=== PATIENT | male | born 1985 | race Caucasian/White ===

== ENCOUNTER 2023-07-27 20:12 | Emergency (ER) | payer MEDICAID, OTHER ==
[~2023-07-27] VITALS: Ht 177.8 cm; Wt 76.0 kg
[2023-07-27 21:44] VITALS: TEMP 98
[2023-07-28] MEDS: KETOROLAC TROMETHAMINE 60 MG/2 ML VIAL IM ONE (00:20)
[2023-07-28] MEDS: ACETAMINOPHEN 500 MG TABLET PO ONE (00:21)
[2023-07-28] MEDS ORDERED: METH-659 PO (01:10)
[2023-07-28] MEDS ORDERED: IBUP-1492 PO (01:10)
[2023-07-28 02:04] VITALS: BP 122/76; PULSE 68; RESP 16
== END 2023-07-28 02:11 | disposition home or self-care (01) ==
LOC: EMS 20:12
DX: S13.4XXA Sprain of ligaments of cervical spine, initial encounter (principal); S39.012A Strain of muscle, fascia and tendon of lower back, initial encounter; V89.2XXA Person injured in unspecified motor-vehicle accident, traffic, initial encounter; Y93.89 Activity, other specified; Y92.89 Other specified places as the place of occurrence of the external cause; Y99.8 Other external cause status
CPT/HCPCS: 99284; 72050; 72100; 96372; J1885